=== PATIENT | male | born 1970 | race Caucasian/White ===

== ENCOUNTER 2016-11-27 05:13 | Emergency (ER) | payer BC, OTHER ==
[~2016-11-27 05:13] MED LIST: Lidocaine 2% with EPINEPHrine 1:100,000 20 ML MDV INFILT ONE
--- NOTE | 2016-11-27 05:55 | EDM.PDOC ---
ED HPI GENERAL MEDICAL PROBLEM - General Chief Complaint: Laceration Stated Complaint: HAND LACERATION Time Seen by Provider: 11/27/16 05:30 Source of Information: Reports: Patient - History of Present Illness INITIAL COMMENTS - FREE TEXT/NARRATIVE: Dropped utility knife accidentally on left hand - Related Data Allergies Allergy/AdvReac Type Severity Reaction Status Date / Time No Known Allergies Allergy Verified 11/27/16 05:19 Home Meds: Home Meds Naproxen Sodium [Aleve] 2 cap PO DAILY 11/27/16 [History] Social & Family History - Tobacco Use Smoking Status *Q: Current Every Day Smoker Years of Tobacco use: 30 Packs/Tins Daily: 1 - Caffeine Use Caffeine Use: Reports: Coffee - Alcohol Use Days Per Week of Alcohol Use: 1 Number of Drinks Per Day: 2 Total Drinks Per Week: 2 - Recreational Drug Use Recreational Drug Use: No ED ROS GENERAL - Review of Systems Review Of Systems: ROS reveals no pertinent complaints other than HPI. ED EXAM, SKIN/RASH Exam: See Below Exam Limited By: No Limitations Location, Skin: Upper Extremity, Left Comments: 3 cm lac on left rign finger,palamar ascpect. 1 cm on the pinky. ED SKIN PROCEDURES - Laceration/Wound Repair Left Hand Lac/Wound length In cm: 4 Appearance: Clean Distal NVT: Neuro & Vascular Intact, No Tendon Injury Anesthetic Type: Local Local Anesthesia - Lidocaine (Xylocaine): 2% With EPI Local Anesthetic Volume: 5cc Skin Prep: Chlorhexidine (Hibiciens) Exploration/Debridement/Repair: No Foreign Material Found Closed with: Sutures Suture Size: 4-0 Suture Type: Nylon Course - Vital Signs Last Recorded V/S: Last Vital Signs Temp 98.3 F 11/27/16 05:21 Pulse 88 11/27/16 05:21 Resp 16 11/27/16 05:21 BP 144/85 H 11/27/16 05:21 Pulse Ox 99 11/27/16 05:21 Departure - Departure Time of Disposition: 05:53 Disposition: Home, Self-Care 01 Clinical Impression: Broken skin, Laceration - Discharge Information Instructions: Laceration Care, Adult Referrals: PCP,None [Primary Care Provider] - Forms: ED Department Discharge Additional Instructions: ROS in 7-10 days - Problem List & Annotations (1) Laceration SNOMED Code(s): 324217264 Code(s): [id number] - Status: Acute Current Visit: Yes - Problem List Review Problem List Initiated/Reviewed/Updated: Yes - Assessment/Plan Plan: Repaired without complications
== END 2016-11-27 06:10 | disposition home or self-care (01) ==
LOC: FB.ED 05:13
DX: S61.215A Laceration without foreign body of left ring finger without damage to nail, initial encounter (principal); Z79.899 Other long term (current) drug therapy; F17.210 Nicotine dependence, cigarettes, uncomplicated; W26.0XXA Contact with knife, initial encounter
CPT/HCPCS: 12002; 99000; 99282